=== PATIENT | female | born 1970 | race Caucasian/White ===

== ENCOUNTER 2017-12-26 09:02 | Day surgery (SDC) | payer BC ==
[2017-12-26] MEDS ORDERED: Marcaine 0.5% SDV 10 ML IJ ONE (09:03)
[2017-12-26] MEDS ORDERED: Lactated Ringers 1,000 ML IV ONE (09:03)
[2017-12-26] MEDS ORDERED: Xylocaine 1% Vial 30 ML PF IJ ONE (09:03)
[2017-12-26] MEDS ORDERED: DIPRIVAN 200 MG/20 ML IV ONE (09:03)
--- NOTE | 2017-12-26 12:44 | XRAY ---
42 seconds fluoroscopy time in surgery for left side L2-4 MBB.
--- NOTE | 2017-12-26 12:44 | XRAY ---
Indication: Right L2-L4 MBB. Intraoperative fluoroscopy was provided for 42 seconds. 3 digital spot images submitted for interpretation demonstrates posterior spinal needle tips projecting over the expected course of the right L2, L3, and L4 nerve roots. Correlate with intraoperative findings/report.
--- NOTE | 2017-12-26 15:12 | OP ---
DATE OF PROCEDURE: 12/26/2017 1135 SURGEON: Areli Coker D.O. PREOPERATIVE DIAGNOSIS: 1. Degenerative lumbar spine disease, spondylosis, low back pain. POSTOPERATIVE DIAGNOSIS: 1. Degenerative lumbar spine disease, spondylosis, low back pain. PROCEDURE PERFORMED: Right L4, L3, L2 medial branch block under fluoroscopic guidance. DESCRIPTION OF THE PROCEDURE: The patient was taken to the operating room and placed in the prone position on the table. Skin at the injection site was prepped and draped in sterile fashion. Under fluoroscopy, bony anatomy of the targeted injection site was visualized. Induction agent was given as per anesthesia while vital signs were monitored. Local anesthetic agent of 2 cc, 1% Lidocaine was introduced to anesthetize the skin and the subcutaneous tissue through the injection site. Under fluoroscopic guidance, a #20 gauge standard spinal needle was advanced into the target medial branch through the oblique approach. 1 cc of 2% preservative-free Lidocaine was injected into each of the targeted medial branch nerve. After the needle was being removed, the skin was cleansed with alcohol and then a bandage was applied. No complications or adverse consequences were observed. The patient was returned to the holding area until stabilized before discharge to home. After the patient has been fully recovered from anesthesia, the patient states 100% pain reduction after this procedure. The patient will be followed up within ten days after the injection for re-evaluation.
== END 2017-12-26 12:30 | disposition home or self-care (01) ==
LOC: SDC-PAIN 09:02
PROVIDERS: ATTEND Internal Medicine
DX: M46.98 Unspecified inflammatory spondylopathy, sacral and sacrococcygeal region (principal); M54.5 Low back pain; M51.36 Other intervertebral disc degeneration, lumbar region; Z79.891 Long term (current) use of opiate analgesic
CPT/HCPCS: 64493; 64494; 72020; 77003; 84703; J2001; J2704

== ENCOUNTER 2018-01-30 12:05 | Day surgery (SDC) | payer BC ==
[2018-01-30] MEDS ORDERED: Xylocaine-Mpf 2% 5 Ml Vial IJ ONE (12:06)
[2018-01-30] MEDS ORDERED: DIPRIVAN 200 MG/20 ML IV ONE (12:06)
[2018-01-30] MEDS ORDERED: Lactated Ringers 1,000 ML IV ONE (12:06)
[2018-01-30] MEDS ORDERED: Ketamine HCl 50 MG/ML IV ONE (12:06)
[2018-01-30] MEDS ORDERED: Marcaine 0.5% SDV 10 ML IJ ONE (12:06)
--- NOTE | 2018-01-30 13:34 | XRAY ---
Indication: Right L3-L4 MBB. Intraoperative fluoroscopy was provided for 24 seconds. 3 digital spot images submitted for interpretation demonstrates posterior spinal needle tips projecting over the right L2, L3, and L4 pedicles. Correlate with intraoperative findings/report.
--- NOTE | 2018-01-30 14:39 | XRAY ---
24 seconds fluoroscopy time in surgery for right L3-4 MBB.
--- NOTE | 2018-01-31 10:44 | OP ---
DATE OF PROCEDURE: 01/30/2018 1309 SURGEON: Areli Coker D.O. PREOPERATIVE DIAGNOSIS: Degenerative lumbar spine disease, spondylosis, low back pain. POSTOPERATIVE DIAGNOSIS: Degenerative lumbar spine disease, spondylosis, low back pain. PROCEDURE PERFORMED: Right L4, L3, L2 medial branch block under fluoroscopic guidance. DESCRIPTION OF THE PROCEDURE: The patient was taken to the operating room and placed in the prone position on the table. Skin at the injection site was prepped and draped in sterile fashion. Under fluoroscopy, bony anatomy of the targeted injection site was visualized. Induction agent was given as per anesthesia while vital signs were monitored. Local anesthetic agent of 0.5 cc of 1% lidocaine preservative free was introduced to anesthetize the skin and the subcutaneous tissue through the injection site. Under fluoroscopic guidance, a #20 gauge standard spinal needle was advanced into the target medial branch through the oblique approach. The preservative free 0.5 cc of 1% lidocaine and 0.5 cc of 0.25% Marcaine were injected into each of the targeted medial branch nerve. After the needle was being removed, the skin was cleansed with alcohol and then a bandage was applied. No complications or adverse consequences were observed. The patient was returned to the holding area until stabilized before discharge to home. After the procedure the residual pain is 0 out of 10. The patient was ambulating well. There was no muscle weakness after the procedure. The patient will be followed up within ten days after the injection for re-evaluation.
== END 2018-01-30 13:42 | disposition home or self-care (01) ==
LOC: SDC-PAIN 12:05
PROVIDERS: ATTEND Internal Medicine
DX: M46.96 Unspecified inflammatory spondylopathy, lumbar region (principal); M51.36 Other intervertebral disc degeneration, lumbar region; Z79.891 Long term (current) use of opiate analgesic
CPT/HCPCS: 64493; 64494; 64495; 72020; 76000; J2704

== ENCOUNTER 2018-03-13 08:21 | Day surgery (SDC) | payer BC ==
[2018-03-13] MEDS ORDERED: LIDOCAINE HCL 1% AMPUL 5 ML IJ ONE (08:22)
[2018-03-13] MEDS ORDERED: Marcaine 0.5% SDV 10 ML IJ ONE (08:22)
[2018-03-13] MEDS ORDERED: DIPRIVAN 200 MG/20 ML IV ONE (08:22)
[2018-03-13] MEDS ORDERED: Lactated Ringers 1,000 ML IV ONE (10:28)
--- NOTE | 2018-03-13 11:22 | XRAY ---
Indication: Right L2-L4 RFA. Intraoperative fluoroscopy was provided for 46 seconds. 4 digital spot images submitted for interpretation demonstrates posterior spinal needle tips projecting over the right L2 L3, and L4 pedicles. Correlate with intraoperative findings/report.
--- NOTE | 2018-03-14 10:05 | OP ---
DATE OF PROCEDURE: 03/13/2018 1011 SURGEON: Areli Coker D.O. PREOPERATIVE DIAGNOSIS: Degenerative lumbosacral spine disease, spondylosis, low back pain. POSTOPERATIVE DIAGNOSIS: Degenerative lumbosacral spine disease, spondylosis, low back pain. PROCEDURES PERFORMED: Right L4, L3, L2 medial branch radiofrequency ablation under fluoroscopic guidance. DESCRIPTION OF PROCEDURE: The patient was taken to the operating room and laid in the prone position on the table. The skin over the injection site was prepped and draped in sterile fashion. Under fluoroscopy bony anatomy of the target injection site was visualized. Induction agent was given as per anesthesia while vital signs were monitored. Local anesthetic agent was introduced to anesthetize the skin and the subcutaneous tissue through the injection site. Under fluoroscopic guidance a standard size spinal needle with cannula was advanced into the target medial branch nerve as per standard protocol. Before the radiofrequency ablation motor and sensory nerve testing was conducted as per protocol. Under the safety guidance which ensured no motor nerves being involved, L4, L3, L2 radiofrequency ablation was conducted at 80 degrees Celsius for 90 seconds as per standard protocol. After the spinal needle with the cannula was removed the skin was cleansed with alcohol and then a bandage was applied. No complications or adverse occurrences were observed. The patient was returned to the holding area until stabilized before being discharged to home. The preoperative pain level was 10 out of 10 and the postoperative pain level was 0 out of 10. The patient will be followed up within 10 days after the procedure for re-evaluation.
== END 2018-03-13 11:05 | disposition home or self-care (01) ==
LOC: SDC-PAIN 08:21
PROVIDERS: ATTEND Internal Medicine
DX: M46.96 Unspecified inflammatory spondylopathy, lumbar region (principal); M51.36 Other intervertebral disc degeneration, lumbar region; M54.5 Low back pain; M47.819 Spondylosis without myelopathy or radiculopathy, site unspecified; Z79.891 Long term (current) use of opiate analgesic
CPT/HCPCS: 64635; 64636; 72020; 77003; J2704

== ENCOUNTER 2023-10-14 12:22 | Observation (INO) | payer BC ==
[2023-10-14] MEDS ORDERED: Sodium Chloride 0.9% 1000 ML 1,000 ML ONE (12:58)
[2023-10-14] MEDS ORDERED: Zofran 4 MG/2 ML VIAL ONE (12:58)
[2023-10-14] MEDS ORDERED: Sodium Chloride 0.9% 1000 ML 1,000 ML IV STA (12:59)
[2023-10-14] MEDS ORDERED: Zofran 4 MG/2 ML VIAL IV ONE (12:59)
[2023-10-14 13:06] LABS: Absolute Neutrophil Ct (ANC) 8.45 x10^3/uL (1.4-6.9); BASOPHIL % 0.3 % (0.0-0.4); Basophil (Absolute #) 0.03 x10^3/uL (0-0.4); Eosinophil (Absolute #) 0 x10^3/uL (0-0.5); Hematocrit 39.8 % (35-47); Hemoglobin 13.3 g/dL (12.0-16.0); IMMATURE GRAN # 0.05 x10^3u/L (0.00-0.03); IMMATURE GRAN % 0.5 % (0.00-0.4); Lymphocyte (Absolute #) 1.43 x10^3/uL (1.0-4.6); Mean Corpuscular Hemoglobin 31.1 pg (26-32); Mean Corpuscular Hgb Concent. 33.4 g/dL (32-36); Monocyte (Absolute #) 1.03 x10^3/uL (0.0-1.3); Monocytes % 9.4 % (0.0-12.0); Neutrophil % 76.8 % (36.0-66.0); Platelet Count 327 x10^3/uL (150-450); Red Blood Count 4.28 x10^6/uL (4.1-5.4); Red Cell Distribution Width 13.4 % (11.5-14.0)
[2023-10-14 13:12] LABS: ALBUMIN 3.8 g/dL (3.5-5.0); ANION GAP 13.9 MEQ/L (5-15); BILIRUBIN,TOTAL 0.7 mg/dL (0.2-1.3); Calcium 8.2 mg/dL (8.4-10.2); Creatinine 1 0.73 mg/dL (0.52-1.04); EST GLOMERULAR FILTRATION RATE 99.5 ML/MIN; Potassium 3.4 mmol/L (3.5-5.1); Total Protein 7.3 g/dL (6.3-8.2)
[2023-10-14] MEDS ORDERED: MORPHINE SULFATE 4 MG INJ IV ONE (13:17)
[2023-10-14 13:18] LABS: Appearance Clear (Clear); Bilirubin Small (Negative); Blood Large (Negative); Epithelial Cells Rare /HPF (None Seen); Glucose, Urine Negative (Negative); Hyaline Casts NONE SEEN /LPF (0-2); Ketones 40 (Negative); Leukocyte Esterase Trace (Negative); Nitrite Positive (Negative); Protein,Urine Dip 300 (Negative); RBC 51-100 /HPF (0-5); Specific Gravity 1.015 (1.005-1.030)
[2023-10-14] MEDS ORDERED: MORPHINE SULFATE 4 MG INJ ONE (13:21)
[2023-10-14 13:25] LABS: ADD URINE CULTURE? YES (NO); Bacteria Few /HPF (None Seen)
[2023-10-14 13:53] LABS: INFLUENZA A NEGATIVE (NEGATIVE); INFLUENZA B NEGATIVE (NEGATIVE); RESPIRATORY SYNCTIAL VIRUS NEGATIVE (NEGATIVE); SARS-CoV-2 Xpert Express NEGATIVE (NEGATIVE)
[2023-10-14] MEDS ORDERED: ROCEPHIN 2 Gm-D5w 50ML BAG** 2 G/50 ML IVPB IV STA (14:10)
[2023-10-14] MEDS ORDERED: ROCEPHIN 2 Gm-D5w 50ML BAG** 2 G/50 ML IVPB IV ONE (14:14)
--- NOTE | 2023-10-14 14:17 | ERPHSYRPT ---
- History of Present Illness Time Seen by Provider: 10/14/23 13:15 Source: patient Exam Limitations: no limitations Patient Subjective Stated Complaint: N/V Triage Nursing Assessment: Patient brought back to ED per w/c and transferred self to bed. Patient A+O X 3. Patient's skin pink, warm and dry. Patient states she was dx with UTI at [facility] ER on 10/12/2023 and given Macrobid. Patient states she has had pelvic pressure, N/V since 10/09/2023. Physician History: 53-year-old female with UTI symptoms for last 5 days, evaluated outside hospital ER 2 days ago on Macrobid presented with worsening pelvic pressure/pains with burning urination and subjective feeling of fever and chills. Patient reports also having nausea with multiple episodes of nonprojectile, nonbilious vomiting where she is not able to hold much down. Feels weak fatigued tired and dehydrated. She is also having mild headache today. Timing/Duration: day(s) (5), gradual onset, worse Quality: dullness, fullness, pressure Onset Location: suprapubic Pain Radiation: back Severity of Pain-Max: moderate Severity of Pain-Current: moderate Sexual intercourse history: non-contributory Modifying Factors: Improves With: nothing Associated Symptoms: abdominal pain, fever, chills, nausea, vomiting Allergies/Adverse Reactions: amoxicillin [From Augmentin] Allergy (Verified 10/14/23 12:36) clavulanic acid [From Augmentin] Allergy (Verified 10/14/23 12:36) levofloxacin [From Levaquin] Allergy (Verified 10/14/23 12:36) Home Medications: Hydroxyzine HCl 25 mg [Atarax 25 mg] 1 tab PO HS PRN 10/14/23 [History] Nitrofurantoin Macrocrystal [Nitrofurantoin] 1 cap PO BID 10/14/23 [History] Phenazopyridine HCl [Pyridium] 1 tab PO TID 10/14/23 [History] Quetiapine Fumarate [Seroquel] 1 tab PO HS 10/14/23 [History] Venlafaxine HCl [Venlafaxine HCl ER] 1 tab PO DAILY 10/14/23 [History] Hx Influenza Vaccination/Date Given: Yes Hx Pneumococcal Vaccination/Date Given: No Travel Risk - International Travel Have you traveled outside of the country in past 3 weeks: No - Coronavirus Screening Close contact with a COVID-19 positive Pt in past 14-21 Days: No - Vaccine Status Have you recieved a Covid-19 vaccination: No - Review of Systems Constitutional: No Symptoms Eyes: No Symptoms Ears, Nose, & Throat: No Symptoms Respiratory: No Symptoms Cardiac: No Symptoms Abdominal/Gastrointestinal: Abdominal Pain, Nausea, Vomiting Genitourinary Symptoms: Dysuria, Frequency, No Flank Pain Musculoskeletal: Back Pain Skin: No Symptoms Psychological: No Symptoms Endocrine: No Symptoms - Past Medical History Cardiac History: Myocardial Infarction (ID) Musculoskeletal History: No Pertinent History History: No Pertinent History Psycho-Social History: No Pertinent History Female Reproductive Disorders: No Pertinent History - Past Surgical History Past Surgical History: No Neuro Surgical History: No Pertinent History Cardiac: No Pertinent History Respiratory: No Pertinent History Gastrointestinal: No Pertinent History Genitourinary: No Pertinent History Musculoskeletal: No Pertinent History Female Surgical History: No Pertinent History - Social History Smoking Status: Never smoker Exposure to second hand smoke: Yes Drug Use: narcotics Patient Lives Alone: No - Nursing Vital Signs Nursing Vital Signs: Initial Vital Signs Pulse Rate 94 H 10/14/23 12:32 Respiratory Rate 18 10/14/23 12:32 Blood Pressure 138/92 10/14/23 12:32 O2 Sat by Pulse Oximetry 94 L 10/14/23 12:32 Pain Scale Pain Intensity 7 - Physical Exam General Appearance: no apparent distress, alert Eye Exam: PERRL/EOMI Ears, Nose, Throat Exam: normal ENT inspection, TMs normal, pharynx normal, moist mucous membranes Neck Exam: normal inspection, full range of motion Respiratory Exam: normal breath sounds, lungs clear Cardiovascular Exam: regular rate/rhythm, normal heart sounds Gastrointestinal/Abdomen Exam: soft, normal bowel sounds, tenderness (Suprapubic) Back Exam: normal inspection, normal range of motion, No CVA tenderness Extremity Exam: normal inspection, normal range of motion, pelvis stable Neurologic Exam: alert, oriented x 3, cooperative Skin Exam: normal color SpO2 Interpretation: normal SpO2: 96 O2 Delivery: Room Air Ordered Tests: Active Orders 24 hr Category Date Time Status ABDOMEN AND PELVIS W CONTRAST [CT] Stat Exams 10/14/23 13:17 Completed CBC W DIFF Stat Lab 10/14/23 12:48 Completed CMP Stat Lab 10/14/23 12:48 Completed CULTURE,URINE Stat Lab 10/14/23 12:48 Received LIPASE Stat Lab 10/14/23 12:48 Completed UA W/RFX UR CULTURE Stat Lab 10/14/23 12:48 Completed Transfer Order Routine Transfer 10/14/23 Ordered Medication Summary Discontinued Medications Generic Name Dose Route Start Last Admin Trade Name Triston PRN Reason Stop Dose Admin Sodium Chloride 1,000 mls @ 999 mls/hr 10/14/23 12:59 10/14/23 14:02 Sodium Chloride 0.9% 1000 Ml IV 10/14/23 13:59 Infused .Q1H1M STA Infusion Sodium Chloride Confirm 10/14/23 12:58 Sodium Chloride 0.9% 1000 Ml Administered 10/14/23 12:59 Dose 1,000 mls @ ud .ROUTE .STK-MED ONE Ceftriaxone Sodium/Dextrose 2 g in 50 mls @ 100 mls/hr 10/14/23 14:10 10/14/23 14:51 Rocephin 2 Gm-D5w 50ml Bag IV 10/14/23 14:39 Infused STAT STA Infusion Ceftriaxone Sodium/Dextrose Confirm 10/14/23 14:14 Rocephin 2 Gm-D5w 50ml Bag Administered 10/14/23 14:15 Dose 2 g in 50 mls @ ud IV .STK-MED ONE Morphine Sulfate 4 mg 10/14/23 13:17 10/14/23 13:23 Morphine Sulfate 4 Mg/Ml Injection IV 10/14/23 13:18 4 mg STAT ONE Administration Morphine Sulfate Confirm 10/14/23 13:21 Morphine Sulfate 4 Mg/Ml Injection Administered 10/14/23 13:22 Dose 4 mg .ROUTE .STK-MED ONE Ondansetron HCl 4 mg 10/14/23 12:59 10/14/23 13:00 Ondansetron Hcl 4 Mg/2 Ml Vial IV 10/14/23 13:00 4 mg STAT ONE Administration Ondansetron HCl Confirm 10/14/23 12:58 Ondansetron Hcl 4 Mg/2 Ml Vial Administered 10/14/23 12:59 Dose 4 mg .ROUTE .STK-MED ONE Lab/Rad Data: Laboratory Result Diagrams 10/14/23 12:48 10/14/23 12:48 Laboratory Results 12/0310/14/23 10/14/23 Range/Units 13:10 12:48 12:48 WBC (4.0-10.5) x10^3/uL RBC (4.1-5.4) x10^6/uL Hgb (12.0-16.0) g/dL Hct (35-47) % MCV (78-100) fL MCH (26-32) pg MCHC (32-36) g/dL RDW (11.5-14.0) % Plt Count (150-450) x10^3/uL MPV (7.5-11.0) fL Gran % (36.0-66.0) % Immature Gran % (Auto) (0.00-0.4) % Nucleat RBC Rel Count (0.00-0.1) % Eos # (Auto) (0-0.5) x10^3/uL Immature Gran # (Auto) (0.00-0.03) x10^3u/L Absolute Lymphs (auto) (1.0-4.6) x10^3/uL Absolute Monos (auto) (0.0-1.3) x10^3/uL Absolute Nucleated RBC (0.00-0.01) x10^3u/L Lymphocytes % (24.0-44.0) % Monocytes % (0.0-12.0) % Eosinophils % (0.00-5.0) % Basophils % (0.0-0.4) % Absolute Granulocytes (1.4-6.9) x10^3/uL Basophils # (0-0.4) x10^3/uL Sodium 131 L (137-145) mmol/L Potassium 3.4 L (3.5-5.1) mmol/L Chloride 97 L (98-107) mmol/L Carbon Dioxide 24 (22-30) mmol/L Anion Gap 13.9 (5-15) MEQ/L BUN 10 (7-17) mg/dL Creatinine 0.73 (0.52-1.04) mg/dL Estimated GFR 99.5 ML/MIN Glucose 119 H (74-106) mg/dL Calcium 8.2 L (8.4-10.2) mg/dL Total Bilirubin 0.70 (0.2-1.3) mg/dL AST 25 (14-36) U/L ALT 31 (0-35) U/L Alkaline Phosphatase 118 (38-126) U/L Serum Total Protein 7.3 (6.3-8.2) g/dL Albumin 3.8 (3.5-5.0) g/dL Lipase 32 (23-300) U/L Urine Color (Yellow) Urine Appearance (Clear) Urine pH (4.6-8.0) Ur Specific Prospect (1.005-1.030) Urine Protein (Negative) Urine Glucose (UA) (Negative) mg/dL Urine Ketones (Negative) Urine Blood (Negative) Urine Nitrite (Negative) Urine Bilirubin (Negative) Urine Urobilinogen (0.2) mg/dL Ur Leukocyte Esterase (Negative) U Hyaline Cast (Auto) (0-2) /LPF Urine Microscopic RBC (0-5) /HPF Urine Microscopic WBC (0-5) /HPF Ur Epithelial Cells (None Seen) /HPF Urine Bacteria (None Seen) /HPF Urine Culture Reflexed (NO) Influenza Type A Ag NEGATIVE (NEGATIVE) Influenza Type B Ag NEGATIVE (NEGATIVE) RSV (PCR) NEGATIVE (NEGATIVE) SARS-CoV-2 (PCR) NEGATIVE (NEGATIVE) 10/14/23 10/14/23 Range/Units 12:48 12:48 WBC 11.0 H (4.0-10.5) x10^3/uL RBC 4.28 (4.1-5.4) x10^6/uL Hgb 13.3 (12.0-16.0) g/dL Hct 39.8 (35-47) % MCV 93.0 (78-100) fL MCH 31.1 (26-32) pg MCHC 33.4 (32-36) g/dL RDW 13.4 (11.5-14.0) % Plt Count 327 (150-450) x10^3/uL MPV 10.0 (7.5-11.0) fL Gran % 76.8 H (36.0-66.0) % Immature Gran % (Auto) 0.5 H (0.00-0.4) % Nucleat RBC Rel Count 0.0 (0.00-0.1) % Eos # (Auto) 0 (0-0.5) x10^3/uL Immature Gran # (Auto) 0.05 H (0.00-0.03) x10^3u/L Absolute Lymphs (auto) 1.43 (1.0-4.6) x10^3/uL Absolute Monos (auto) 1.03 (0.0-1.3) x10^3/uL Absolute Nucleated RBC 0.00 (0.00-0.01) x10^3u/L Lymphocytes % 13.0 L (24.0-44.0) % Monocytes % 9.4 (0.0-12.0) % Eosinophils % 0.0 (0.00-5.0) % Basophils % 0.3 (0.0-0.4) % Absolute Granulocytes 8.45 H (1.4-6.9) x10^3/uL Basophils # 0.03 (0-0.4) x10^3/uL Sodium (137-145) mmol/L Potassium (3.5-5.1) mmol/L Chloride (98-107) mmol/L Carbon Dioxide (22-30) mmol/L Anion Gap (5-15) MEQ/L BUN (7-17) mg/dL Creatinine (0.52-1.04) mg/dL Estimated GFR ML/MIN Glucose (74-106) mg/dL Calcium (8.4-10.2) mg/dL Total Bilirubin (0.2-1.3) mg/dL AST (14-36) U/L ALT (0-35) U/L Alkaline Phosphatase (38-126) U/L Serum Total Protein (6.3-8.2) g/dL Albumin (3.5-5.0) g/dL Lipase (23-300) U/L Urine Color Dark Yellow A (Yellow) Urine Appearance Clear (Clear) Urine pH 6.0 (4.6-8.0) Ur Specific Prospect 1.015 (1.005-1.030) Urine Protein 300 A (Negative) Urine Glucose (UA) Negative (Negative) mg/dL Urine Ketones 40 A (Negative) Urine Blood Large A (Negative) Urine Nitrite Positive A (Negative) Urine Bilirubin Small A (Negative) Urine Urobilinogen 1.0 A (0.2) mg/dL Ur Leukocyte Esterase Trace A (Negative) U Hyaline Cast (Auto) NONE SEEN (0-2) /LPF Urine Microscopic RBC 51-100 A (0-5) /HPF Urine Microscopic WBC 3-5 (0-5) /HPF Ur Epithelial Cells Rare (None Seen) /HPF Urine Bacteria Few A (None Seen) /HPF Urine Culture Reflexed YES (NO) Influenza Type A Ag (NEGATIVE) Influenza Type B Ag (NEGATIVE) RSV (PCR) (NEGATIVE) SARS-CoV-2 (PCR) (NEGATIVE) - Progress Progress: improved, re-examined Air Movement: good Progress Note: 10/14/23 14:15 53-year-old female with UTI symptoms for last 5 days, evaluated outside hospital ER 2 days ago on Macrobid presented with worsening pelvic pressure/pains with burning urination and subjective feeling of fever and chills. Patient reports also having nausea with multiple episodes of nonprojectile, nonbilious vomiting where she is not able to hold much down. Feels weak fatigued tired and dehydrated. She is also having mild headache today. Patient has suprapubic tenderness, negative flank tenderness. Afebrile and here. She is given fluids and symptomatic treatment, on reevaluation feeling much better. Workup showed white count of 11, chemistries fairly unremarkable. She does have UTI and given a dose of Rocephin in here. 10/14/23 16:[address] abdomen pelvis with contrast which showed finding consistent with acute left-sided pyelonephritis associated with pelvic ureteral junction stenosis and mild hydronephrosis. No stones. I believe patient would benefit with IV antibiotics as she has outpatient treatment failure. I have discussed the results of workup with patient and family and recommended admission with IV antibiotics and they agreed. I have discussed with Dr. Morales, reviewed history, workup and patient is excepted for admission. Blood Culture(s) Obtained: No Antibiotics given: Yes Counseled pt/family regarding: lab results, diagnosis, need for follow-up, rad results Medical Desision Making - Discussion of managment Care discussed with:: hospitalist () Reviewed:: Test results Agreed on:: Treatment plan Will see patient: in hospital - Diagnostic Testing Diagnostic test were ordered, analyzed, and reviewed by me: Yes Radiological Interpretation: Reviewed by me, Teleradiologist Report - Risk of complications The pt has a high risk of morbidity or mortality based on: Decision regarding hospitilization or escalation of hosp level of care - Departure Departure Disposition: Observation Clinical Impression: Acute pyelonephritis Condition: Stable Critical Care Time: No Referrals: YO SOTO [Primary Care Provider] - Follow up/PCP as directed
--- NOTE | 2023-10-14 15:36 | XRAY ---
CLINICAL HISTORY:lower abd pain COMPARISON:None. TECHNIQUE:CT scan of the abdomen and pelvis with the intravenous administration of 80 cc Isovue 370 contrast material. FINDINGS: The right kidney is of average size, shape and parenchymal thickness with no evidence of stones, back pressure changes or space-occupying lesions. 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 No evidence of ureteric stones. The left kidney is of average size and shape. There are ill-defined areas of reduced parenchyma enhancement are noted more at the upper and lower poles of the kidney associated with perirenal fat stranding. There is dilatation of the renal pelvis and calyces due to possible obstruction at the pelvic-ureteric junction. No stones. The liver is of average size, displaying regular contour and reduced parenchymal density. No focal lesions could be detected. Normal hepatic vascular pattern is noted with no evidence of vascular distortion, thrombotic venous occlusion, or compromise of the hepatic biliary drainage. The GB appears unremarkable. No CT evidence of acute appendicitis. The spleen is of average size with no abnormal focal parenchymal attenuation or wilmer splenic collection. Small splenules are noted. The pancreas, adrenal glands and great vessels are grossly within normal limits. No significant lymph kaitlynn enlargement or ascetic fluid collection. The small and large bowel appear unremarkable. The appendix is not visualized. No signs of acute appendicitis. The uterus, both adnexa and ischiorectal fossae show normal CT appearance. Normal filling of the urinary bladder with no stones, masses, or diverticula. Bone window settings showed degenerative changes of the lumbar spine with L5/S1 degenerative disc disease, yet no evidence of fractures or destructive lesions. Lung window settings showed few right lower lung lobe nodules, ranging in size 4-13 mm, most of them show central calcification with small calcified posterior mediastinal LN. IMPRESSION: Fatty liver. Left renal focal areas of reduced parenchyma enhancement and perirenal fat stranding, likely representing pyelonephritis associated with pelvic-ureteric junction stenosis and mild hydronephrosis. 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 No evidence of ureteric stones. A few right lower lung lobe partially calcified nodules with small calcified posterior mediastinal LN require a dedicated CT study of the chest. The [facility] ER office was called at [phone] at 02:02 AM [employer], 10/14/2023 and the results were verbally communicated with Amy Electronically Signed by: Nessa Moreland MD. (10/14/2023 15:31:30 EST)
--- NOTE | 2023-10-14 17:00 | PCM.HP ---
History of Present Illness - Chief Complaint Chief Complaint: Acute pyelonephritis Date: 10/14/23 (1400) History of Present Illness: is a 53 year old female who is admitted with pelvic pain, fever, nausea and vomiting. She has had nausea for 3 days. She reports fever to 101 with chills. She has had dysuria and frequency but no hematuria. She reports throbbing pain in pelvis that radiates to back on both sides. No provocative or palliative factors. No sore throat or cough. No chest pain or dyspnea. No other current symptoms. PMH is unremarkable. She was told her EKG is abnormal but has never had a known IL. - Review of Systems Constitutional: Fever, Chills Eyes: No Symptoms Ears, Nose, & Throat: No Symptoms Respiratory: No Symptoms Abdominal/Gastrointestinal: Abdominal Pain, Nausea, Vomiting, No Diarrhea Genitourinary Symptoms: Dysuria, Frequency, No Hematuria Musculoskeletal: No Symptoms Skin: No Symptoms Neurological: No Symptoms Psychological: No Symptoms Endocrine: No Symptoms Hematologic/Lymphatic: No Symptoms Immunological/Allergic: No Symptoms All Other Systems: Reviewed and Negative Medications & Allergies Home Medications: Home Medication List Nitrofurantoin Macrocrystal [Nitrofurantoin] 100 mg PO BID 10/14/23 [History Confirmed 10/14/23] Phenazopyridine HCl [Pyridium] 200 mg PO TID 10/14/23 [History Confirmed 10/14/23] Quetiapine Fumarate [Seroquel] 400 mg PO HS 10/14/23 [History Confirmed 10/14/23] Venlafaxine HCl [Venlafaxine HCl ER] 150 tab PO DAILY 10/14/23 [History Confirmed 10/14/23] hydrOXYzine pamoate [Hydroxyzine Pamoate] 50 mg PO BIDPRN PRN 10/14/23 [History Confirmed 10/14/23] Allergies/Adverse Reactions: Allergies Allergy/AdvReac Type Severity Reaction Status Date / Time amoxicillin [From Augmentin] Allergy Verified 10/14/23 12:36 clavulanic acid Allergy Verified 10/14/23 12:36 [From Augmentin] levofloxacin [From Levaquin] Allergy Verified 10/14/23 12:36 - Past Medical History Past Medical History: No ENT History: No Pertinent History Cardiac History: No Pertinent History, Myocardial Infarction (IL) (EKG was abnormal. She has not had documented IL) Respiratory History: No Pertinent History Endocrine Medical History: No Pertinent History Musculoskelatal History: No Pertinent History History: No Pertinent History Pyscho-Social History: No Pertinent History Reproductive Disorders: No Pertinent History - Female History Are you now?: No - Past Surgical History Past Surgical History: No Neuro Surgical History: No Pertinent History Cardiac History: No Pertinent History Respiratory Surgery: No Pertinent History GI Surgical History: No Pertinent History Genitourinary Surgical Hx: No Pertinent History Musculskeletal Surgical Hx: No Pertinent History Female Surgical History: No Pertinent History - Social History Smoking Status: Never smoker Exposure to second hand smoke: Yes Drug Use: narcotics - Physical Exam Vital Signs: Vital Signs - 24 hr Temp Pulse Resp BP BP Pulse Ox 10/14/23 16:25 96 10/14/23 16:00 83 17 118/79 94 L 10/14/23 15:48 89 16 136/84 96 10/14/23 15:30 100 H 22 107/83 84 L 10/14/23 15:00 83 18 108/77 93 L 10/14/23 14:30 86 18 125/82 93 L 10/14/23 14:05 88 19 127/78 94 L 10/14/23 14:02 91 H 21 126/78 96 10/14/23 13:30 116/77 10/14/23 13:00 93 H 14 117/88 91 L 10/14/23 12:39 98.8 F 93 H 20 138/92 95 10/14/23 12:32 94 H 18 138/92 94 L General Appearance: mild distress Neurologic Exam: alert, oriented x 3, cooperative, 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 II-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 as tested Eye Exam: PERRL/EOMI, eyes nml inspection Ears, Nose, Throat Exam: normal ENT inspection Neck Exam: normal inspection, non-tender, supple Respiratory Exam: normal breath sounds, lungs clear Cardiovascular Exam: regular rate/rhythm, normal heart sounds Gastrointestinal/Abdomen Exam: soft, normal bowel sounds, tenderness, No distention, No mass Pelvic Exam: not done Rectal Exam: deferred Back Exam: normal inspection Extremity Exam: normal inspection Skin Exam: normal color Lymphatic Exam: No adenopathy Results - Labs Lab/Micro Results: Lab Results-Last 24 Hours 12/03/23 12/03/23 12/03/23 Range/Units 12:48 12:48 12:48 WBC 11.0 H (4.0-10.5) x10^3/uL RBC 4.28 (4.1-5.4) x10^6/uL Hgb 13.3 (12.0-16.0) g/dL Hct 39.8 (35-47) % MCV 93.0 (78-100) fL MCH 31.1 (26-32) pg MCHC 33.4 (32-36) g/dL RDW 13.4 (11.5-14.0) % Plt Count 327 (150-450) x10^3/uL MPV 10.0 (7.5-11.0) fL Gran % 76.8 H (36.0-66.0) % Immature Gran % (Auto) 0.5 H (0.00-0.4) % Nucleat RBC Rel Count 0.0 (0.00-0.1) % Eos # (Auto) 0 (0-0.5) x10^3/uL Immature Gran # (Auto) 0.05 H (0.00-0.03) x10^3u/L Absolute Lymphs (auto) 1.43 (1.0-4.6) x10^3/uL Absolute Monos (auto) 1.03 (0.0-1.3) x10^3/uL Absolute Nucleated RBC 0.00 (0.00-0.01) x10^3u/L Lymphocytes % 13.0 L (24.0-44.0) % Monocytes % 9.4 (0.0-12.0) % Eosinophils % 0.0 (0.00-5.0) % Basophils % 0.3 (0.0-0.4) % Absolute Granulocytes 8.45 H (1.4-6.9) x10^3/uL Basophils # 0.03 (0-0.4) x10^3/uL Sodium 131 L (137-145) mmol/L Potassium 3.4 L (3.5-5.1) mmol/L Chloride 97 L (98-107) mmol/L Carbon Dioxide 24 (22-30) mmol/L Anion Gap 13.9 (5-15) MEQ/L BUN 10 (7-17) mg/dL Creatinine 0.73 (0.52-1.04) mg/dL Estimated GFR 99.5 ML/MIN Glucose 119 H (74-106) mg/dL Calcium 8.2 L (8.4-10.2) mg/dL Total Bilirubin 0.70 (0.2-1.3) mg/dL AST 25 (14-36) U/L ALT 31 (0-35) U/L Alkaline Phosphatase 118 (38-126) U/L Serum Total Protein 7.3 (6.3-8.2) g/dL Albumin 3.8 (3.5-5.0) g/dL Lipase (23-300) U/L Urine Color Dark Yellow A (Yellow) Urine Appearance Clear (Clear) Urine pH 6.0 (4.6-8.0) Ur Specific Valders 1.015 (1.005-1.030) Urine Protein 300 A (Negative) Urine Glucose (UA) Negative (Negative) mg/dL Urine Ketones 40 A (Negative) Urine Blood Large A (Negative) Urine Nitrite Positive A (Negative) Urine Bilirubin Small A (Negative) Urine Urobilinogen 1.0 A (0.2) mg/dL Ur Leukocyte Esterase Trace A (Negative) U Hyaline Cast (Auto) NONE SEEN (0-2) /LPF Urine Microscopic RBC 51-100 A (0-5) /HPF Urine Microscopic WBC 3-5 (0-5) /HPF Ur Epithelial Cells Rare (None Seen) /HPF Urine Bacteria Few A (None Seen) /HPF Urine Culture Reflexed YES (NO) Influenza Type A Ag (NEGATIVE) Influenza Type B Ag (NEGATIVE) RSV (PCR) (NEGATIVE) SARS-CoV-2 (PCR) (NEGATIVE) 10/14/23 10/14/23 Range/Units 12:48 13:10 WBC (4.0-10.5) x10^3/uL RBC (4.1-5.4) x10^6/uL Hgb (12.0-16.0) g/dL Hct (35-47) % MCV (78-100) fL MCH (26-32) pg MCHC (32-36) g/dL RDW (11.5-14.0) % Plt Count (150-450) x10^3/uL MPV (7.5-11.0) fL Gran % (36.0-66.0) % Immature Gran % (Auto) (0.00-0.4) % Nucleat RBC Rel Count (0.00-0.1) % Eos # (Auto) (0-0.5) x10^3/uL Immature Gran # (Auto) (0.00-0.03) x10^3u/L Absolute Lymphs (auto) (1.0-4.6) x10^3/uL Absolute Monos (auto) (0.0-1.3) x10^3/uL Absolute Nucleated RBC (0.00-0.01) x10^3u/L Lymphocytes % (24.0-44.0) % Monocytes % (0.0-12.0) % Eosinophils % (0.00-5.0) % Basophils % (0.0-0.4) % Absolute Granulocytes (1.4-6.9) x10^3/uL Basophils # (0-0.4) x10^3/uL Sodium (137-145) mmol/L Potassium (3.5-5.1) mmol/L Chloride (98-107) mmol/L Carbon Dioxide (22-30) mmol/L Anion Gap (5-15) MEQ/L BUN (7-17) mg/dL Creatinine (0.52-1.04) mg/dL Estimated GFR ML/MIN Glucose (74-106) mg/dL Calcium (8.4-10.2) mg/dL Total Bilirubin (0.2-1.3) mg/dL AST (14-36) U/L ALT (0-35) U/L Alkaline Phosphatase (38-126) U/L Serum Total Protein (6.3-8.2) g/dL Albumin (3.5-5.0) g/dL Lipase 32 (23-300) U/L Urine Color (Yellow) Urine Appearance (Clear) Urine pH (4.6-8.0) Ur Specific Valders (1.005-1.030) Urine Protein (Negative) Urine Glucose (UA) (Negative) mg/dL Urine Ketones (Negative) Urine Blood (Negative) Urine Nitrite (Negative) Urine Bilirubin (Negative) Urine Urobilinogen (0.2) mg/dL Ur Leukocyte Esterase (Negative) U Hyaline Cast (Auto) (0-2) /LPF Urine Microscopic RBC (0-5) /HPF Urine Microscopic WBC (0-5) /HPF Ur Epithelial Cells (None Seen) /HPF Urine Bacteria (None Seen) /HPF Urine Culture Reflexed (NO) Influenza Type A Ag NEGATIVE (NEGATIVE) Influenza Type B Ag NEGATIVE (NEGATIVE) RSV (PCR) NEGATIVE (NEGATIVE) SARS-CoV-2 (PCR) NEGATIVE (NEGATIVE) - Radiology Impressions Radiology Exams & Impressions: Radiology Procedures Category Date Time Status ABDOMEN AND PELVIS W CONTRAST [CT] Stat Exams 10/14/23 13:17 Completed Assessment/Plan (1) Acute pyelonephritis Current Visit: Yes Status: Acute Assessment & Plan: Patient has acute pyelonephritis on CT UA shows UTI Culture obtained Treat with IV fluids and IV Rocephin. Pain meds as needed. Code(s): N10 - ACUTE PYELONEPHRITIS Telemedicine Encounter - Telemedicine Encounter Telemedicine Encounter: The entirety of this encounter was performed via Telemedicine after consent obtained. Labs and imaging reviewed. Discussed with ER Provider 70 minutes spent on the care of this patient. Nicolas Morales MD [facility] [employer]
[2023-10-14] MEDS ORDERED: FEVERALL 650 MG PR PRN (17:05)
[2023-10-14] MEDS ORDERED: HYDROXYZINE PAMOATE 50 MG PO PRN (17:13)
[2023-10-14] MEDS: Zofran 4 MG/2 ML VIAL IV PRN (17:43)
[2023-10-14] MEDS: MORPHINE SULFATE 4 MG INJ IV PRN ×2 (17:44→21:41)
[2023-10-14] MEDS: NORCO 7.5/325 MG TAB PO PRN (20:34)
[2023-10-14] MEDS: PYRIDIUM 200 MG PO SCH (21:41)
[2023-10-14] MEDS ORDERED: QUETIAPINE FUMARATE 400 MG PO SCH (22:00)
[2023-10-14] MEDS ORDERED: Seroquel 100 MG PO SCH (22:00)
[2023-10-15] MEDS: Zofran 4 MG/2 ML VIAL IV PRN ×2 (00:51→08:28)
[2023-10-15] MEDS: MORPHINE SULFATE 4 MG INJ IV PRN (01:59)
[2023-10-15 04:58] LABS: BASOPHIL % 0.4 % (0.0-0.4); Basophil (Absolute #) 0.03 x10^3/uL (0-0.4); Eosinophil % 0.5 % (0.00-5.0); Eosinophil (Absolute #) 0.04 x10^3/uL (0-0.5); Hematocrit 38.6 % (35-47); IMMATURE GRAN # 0.03 x10^3u/L (0.00-0.03); IMMATURE GRAN % 0.4 % (0.00-0.4); Lymphocyte (Absolute #) 1.84 x10^3/uL (1.0-4.6); Lymphocytes % 24.2 % (24.0-44.0); Mean Cell Volume 97.7 fL (78-100); Mean Corpuscular Hemoglobin 30.4 pg (26-32); Mean Corpuscular Hgb Concent. 31.1 g/dL (32-36); Mean Platelet Volume 9.7 fL (7.5-11.0); Monocyte (Absolute #) 0.95 x10^3/uL (0.0-1.3); Monocytes % 12.5 % (0.0-12.0); NUCLEATED RBC # 0.04 x10^3u/L (0.00-0.01); NUCLEATED RBC % 0.5 % (0.00-0.1); Platelet Count 284 x10^3/uL (150-450); Red Blood Count 3.95 x10^6/uL (4.1-5.4); Red Cell Distribution Width 13.4 % (11.5-14.0); White Blood Count 7.6 x10^3/uL (4.0-10.5)
[2023-10-15] MEDS ORDERED: NORCO 7.5/325 MG TAB ONE (05:21)
[2023-10-15] MEDS: NORCO 7.5/325 MG TAB PO PRN (05:22)
[2023-10-15 05:25] LABS: ALBUMIN 3.2 g/dL (3.5-5.0); ANION GAP 9.6 MEQ/L (5-15); BILIRUBIN,TOTAL 0.5 mg/dL (0.2-1.3); Calcium 7.7 mg/dL (8.4-10.2); Creatinine 1 0.62 mg/dL (0.52-1.04); EST GLOMERULAR FILTRATION RATE 107.8 ML/MIN; Potassium 3.4 mmol/L (3.5-5.1); Total Protein 6.4 g/dL (6.3-8.2)
[2023-10-15 05:28] VITALS: O2SAT 94
[2023-10-15] MEDS ORDERED: ATARAX 25 MG PO PRN (07:03)
[2023-10-15 07:09] VITALS: BP 114/57; PULSE 73; RESP 17; TEMP 97.6
[2023-10-15] MEDS ORDERED: Klor Con PO ONE (07:28)
[2023-10-15] MEDS ORDERED: NORCO 5/325 MG PO PRN (08:13)
[2023-10-15] MEDS: PYRIDIUM 200 MG PO SCH (08:28)
[2023-10-15] MEDS ORDERED: Effexor XR 75 MG PO SCH (10:00)
[2023-10-15] MEDS ORDERED: Protonix 40MG Tablet PO SCH (10:00)
[2023-10-15] MEDS ORDERED: ROCEPHIN 1 Gm-D5w 50 ml Bag** 1 G/50 ML IVPB IV SCH (10:00)
[2023-10-15] MEDS ORDERED: ENOXAPARIN SODIUM SQ SCH (10:00)
[2023-10-15] MEDS ORDERED: Tums EX 750 MG PO SCH (10:00)
[2023-10-15] MEDS ORDERED: NON-FORMULARY ITEM (Venlafaxine Hcl [Venlafaxine Hcl Er] 150 MG Tab.Er.24) PO SCH (10:00)
--- NOTE | 2023-10-15 10:01 | PCM.DS ---
Discharge Summary Date of Admission: 10/14/23 16:26 Date of Discharge: 10/15/23 Admitting Physician: BLACK AVILES MD Primary Care Provider: YO SOTO Allergies Allergies amoxicillin [From Augmentin] Allergy (Verified 10/14/23 12:36) clavulanic acid [From Augmentin] Allergy (Verified 10/14/23 12:36) levofloxacin [From Levaquin] Allergy (Verified 10/14/23 12:36) Hospital Summary - Hospital Course Hospital Course: is a 53 year old female who was admitted with pelvic pain , fever, nausea and vomiting yesterday. She had nausea for 3 days. She reported fever of 101 with chills. She has had dysuria and frequency but no hematuria. She reported throbbing pain in pelvis that radiates to back on both sides. No provocative or palliative factors. No sore throat or cough. No chest pain or dyspnea. No other current symptoms. PMH is unremarkable. She was told her EKG is abnormal but has never had a known DE. Pain has improved overnight. She is asking to go home as she needs to go to work. Urine culture negative. Trops trended down and appears to be demand related. K+ replaced this morning. Will d/c with antibiotics, pain meds, and nausea medication. Blood cultures x2 pending and will need f/u OP with PCP. - Vitals & Intake/Output Vital Signs: Vital Signs Temperature 97.6 F 10/15/23 07:09 Pulse Rate 73 10/15/23 07:09 Respiratory Rate 17 10/15/23 07:09 Blood Pressure 114/57 10/15/23 07:09 O2 Sat by Pulse Oximetry 94 L 10/15/23 07:09 Intake & Output: Intake & Output 10/12/23 10/13/23 10/14/23 10/15/23 11:59 11:59 11:59 11:59 Intake Total 120 Balance 120 Weight 136 kg - Lab Result Diagrams: 10/15/23 04:42 10/15/23 04:42 Lab Results-Last 24 Hrs: Lab Results-Last 24 Hours 10/14/23 10/14/23 10/14/23 Range/Units 12:48 12:48 12:48 WBC 11.0 H (4.0-10.5) x10^3/uL RBC 4.28 (4.1-5.4) x10^6/uL Hgb 13.3 (12.0-16.0) g/dL Hct 39.8 (35-47) % MCV 93.0 (78-100) fL MCH 31.1 (26-32) pg MCHC 33.4 (32-36) g/dL RDW 13.4 (11.5-14.0) % Plt Count 327 (150-450) x10^3/uL MPV 10.0 (7.5-11.0) fL Gran % 76.8 H (36.0-66.0) % Immature Gran % (Auto) 0.5 H (0.00-0.4) % Nucleat RBC Rel Count 0.0 (0.00-0.1) % Eos # (Auto) 0 (0-0.5) x10^3/uL Immature Gran # (Auto) 0.05 H (0.00-0.03) x10^3u/L Absolute Lymphs (auto) 1.43 (1.0-4.6) x10^3/uL Absolute Monos (auto) 1.03 (0.0-1.3) x10^3/uL Absolute Nucleated RBC 0.00 (0.00-0.01) x10^3u/L Lymphocytes % 13.0 L (24.0-44.0) % Monocytes % 9.4 (0.0-12.0) % Eosinophils % 0.0 (0.00-5.0) % Basophils % 0.3 (0.0-0.4) % Absolute Granulocytes 8.45 H (1.4-6.9) x10^3/uL Basophils # 0.03 (0-0.4) x10^3/uL Sodium 131 L (137-145) mmol/L Potassium 3.4 L (3.5-5.1) mmol/L Chloride 97 L (98-107) mmol/L Carbon Dioxide 24 (22-30) mmol/L Anion Gap 13.9 (5-15) MEQ/L BUN 10 (7-17) mg/dL Creatinine 0.73 (0.52-1.04) mg/dL Estimated GFR 99.5 ML/MIN Glucose 119 H (74-106) mg/dL Calcium 8.2 L (8.4-10.2) mg/dL Total Bilirubin 0.70 (0.2-1.3) mg/dL AST 25 (14-36) U/L ALT 31 (0-35) U/L Alkaline Phosphatase 118 (38-126) U/L Serum Total Protein 7.3 (6.3-8.2) g/dL Albumin 3.8 (3.5-5.0) g/dL Lipase (23-300) U/L Urine Color Dark Yellow A (Yellow) Urine Appearance Clear (Clear) Urine pH 6.0 (4.6-8.0) Ur Specific Bouton 1.015 (1.005-1.030) Urine Protein 300 A (Negative) Urine Glucose (UA) Negative (Negative) mg/dL Urine Ketones 40 A (Negative) Urine Blood Large A (Negative) Urine Nitrite Positive A (Negative) Urine Bilirubin Small A (Negative) Urine Urobilinogen 1.0 A (0.2) mg/dL Ur Leukocyte Esterase Trace A (Negative) U Hyaline Cast (Auto) NONE SEEN (0-2) /LPF Urine Microscopic RBC 51-100 A (0-5) /HPF Urine Microscopic WBC 3-5 (0-5) /HPF Ur Epithelial Cells Rare (None Seen) /HPF Urine Bacteria Few A (None Seen) /HPF Urine Culture Reflexed YES (NO) Influenza Type A Ag (NEGATIVE) Influenza Type B Ag (NEGATIVE) RSV (PCR) (NEGATIVE) SARS-CoV-2 (PCR) (NEGATIVE) 10/14/23 10/14/23 10/15/23 Range/Units 12:48 13:10 04:42 WBC 7.6 (4.0-10.5) x10^3/uL RBC 3.95 L (4.1-5.4) x10^6/uL Hgb 12.0 (12.0-16.0) g/dL Hct 38.6 (35-47) % MCV 97.7 (78-100) fL MCH 30.4 (26-32) pg MCHC 31.1 L (32-36) g/dL RDW 13.4 (11.5-14.0) % Plt Count 284 (150-450) x10^3/uL MPV 9.7 (7.5-11.0) fL Gran % 62.0 (36.0-66.0) % Immature Gran % (Auto) 0.4 (0.00-0.4) % Nucleat RBC Rel Count 0.5 H (0.00-0.1) % Eos # (Auto) 0.04 (0-0.5) x10^3/uL Immature Gran # (Auto) 0.03 (0.00-0.03) x10^3u/L Absolute Lymphs (auto) 1.84 (1.0-4.6) x10^3/uL Absolute Monos (auto) 0.95 (0.0-1.3) x10^3/uL Absolute Nucleated RBC 0.04 H (0.00-0.01) x10^3u/L Lymphocytes % 24.2 (24.0-44.0) % Monocytes % 12.5 H (0.0-12.0) % Eosinophils % 0.5 (0.00-5.0) % Basophils % 0.4 (0.0-0.4) % Absolute Granulocytes 4.70 (1.4-6.9) x10^3/uL Basophils # 0.03 (0-0.4) x10^3/uL Sodium (137-145) mmol/L Potassium (3.5-5.1) mmol/L Chloride (98-107) mmol/L Carbon Dioxide (22-30) mmol/L Anion Gap (5-15) MEQ/L BUN (7-17) mg/dL Creatinine (0.52-1.04) mg/dL Estimated GFR ML/MIN Glucose (74-106) mg/dL Calcium (8.4-10.2) mg/dL Total Bilirubin (0.2-1.3) mg/dL AST (14-36) U/L ALT (0-35) U/L Alkaline Phosphatase (38-126) U/L Serum Total Protein (6.3-8.2) g/dL Albumin (3.5-5.0) g/dL Lipase 32 (23-300) U/L Urine Color (Yellow) Urine Appearance (Clear) Urine pH (4.6-8.0) Ur Specific Bouton (1.005-1.030) Urine Protein (Negative) Urine Glucose (UA) (Negative) mg/dL Urine Ketones (Negative) Urine Blood (Negative) Urine Nitrite (Negative) Urine Bilirubin (Negative) Urine Urobilinogen (0.2) mg/dL Ur Leukocyte Esterase (Negative) U Hyaline Cast (Auto) (0-2) /LPF Urine Microscopic RBC (0-5) /HPF Urine Microscopic WBC (0-5) /HPF Ur Epithelial Cells (None Seen) /HPF Urine Bacteria (None Seen) /HPF Urine Culture Reflexed (NO) Influenza Type A Ag NEGATIVE (NEGATIVE) Influenza Type B Ag NEGATIVE (NEGATIVE) RSV (PCR) NEGATIVE (NEGATIVE) SARS-CoV-2 (PCR) NEGATIVE (NEGATIVE) 10/15/23 Range/Units 04:42 WBC (4.0-10.5) x10^3/uL RBC (4.1-5.4) x10^6/uL Hgb (12.0-16.0) g/dL Hct (35-47) % MCV (78-100) fL MCH (26-32) pg MCHC (32-36) g/dL RDW (11.5-14.0) % Plt Count (150-450) x10^3/uL MPV (7.5-11.0) fL Gran % (36.0-66.0) % Immature Gran % (Auto) (0.00-0.4) % Nucleat RBC Rel Count (0.00-0.1) % Eos # (Auto) (0-0.5) x10^3/uL Immature Gran # (Auto) (0.00-0.03) x10^3u/L Absolute Lymphs (auto) (1.0-4.6) x10^3/uL Absolute Monos (auto) (0.0-1.3) x10^3/uL Absolute Nucleated RBC (0.00-0.01) x10^3u/L Lymphocytes % (24.0-44.0) % Monocytes % (0.0-12.0) % Eosinophils % (0.00-5.0) % Basophils % (0.0-0.4) % Absolute Granulocytes (1.4-6.9) x10^3/uL Basophils # (0-0.4) x10^3/uL Sodium 130 L (137-145) mmol/L Potassium 3.4 L (3.5-5.1) mmol/L Chloride 101 (98-107) mmol/L Carbon Dioxide 23 (22-30) mmol/L Anion Gap 9.6 (5-15) MEQ/L BUN 11 (7-17) mg/dL Creatinine 0.62 (0.52-1.04) mg/dL Estimated GFR 107.8 ML/MIN Glucose 87 (74-106) mg/dL Calcium 7.7 L (8.4-10.2) mg/dL Total Bilirubin 0.50 (0.2-1.3) mg/dL AST 20 (14-36) U/L ALT 24 (0-35) U/L Alkaline Phosphatase 90 (38-126) U/L Serum Total Protein 6.4 (6.3-8.2) g/dL Albumin 3.2 L (3.5-5.0) g/dL Lipase (23-300) U/L Urine Color (Yellow) Urine Appearance (Clear) Urine pH (4.6-8.0) Ur Specific Bouton (1.005-1.030) Urine Protein (Negative) Urine Glucose (UA) (Negative) mg/dL Urine Ketones (Negative) Urine Blood (Negative) Urine Nitrite (Negative) Urine Bilirubin (Negative) Urine Urobilinogen (0.2) mg/dL Ur Leukocyte Esterase (Negative) U Hyaline Cast (Auto) (0-2) /LPF Urine Microscopic RBC (0-5) /HPF Urine Microscopic WBC (0-5) /HPF Ur Epithelial Cells (None Seen) /HPF Urine Bacteria (None Seen) /HPF Urine Culture Reflexed (NO) Influenza Type A Ag (NEGATIVE) Influenza Type B Ag (NEGATIVE) RSV (PCR) (NEGATIVE) SARS-CoV-2 (PCR) (NEGATIVE) Micro Results-Entire Visit: Microbiology 10/14/23 12:48 Urine Culture - Preliminary Clean Catch Midstream NO GROWTH TO DATE - Radiology Exams Ordered Rad Exams-Entire Visit: Radiology Procedures Category Date Time Status ABDOMEN AND PELVIS W CONTRAST [CT] Stat Exams 10/14/23 13:17 Completed Discharge Exam General Appearance: no apparent distress, alert, obese Neurologic Exam: alert, oriented x 3, cooperative, normal mood/affect, nml cerebellar function, sensation nml, No motor deficits Eye Exam: PERRL, EOMI, eyes nml inspection Ears, Nose, Throat Exam: normal ENT inspection, pharynx normal, moist mucous membranes Neck Exam: normal inspection, non-tender, supple, full range of motion Respiratory Exam: normal breath sounds, lungs clear, No respiratory distress Cardiovascular Exam: regular rate/rhythm, normal heart sounds Gastrointestinal/Abdomen Exam: soft, No tenderness, No mass Pelvic Exam: deferred Rectal Exam: deferred Back Exam: normal inspection, normal range of motion, No CVA tenderness, No vertebral tenderness Extremity Exam: normal inspection, normal range of motion Skin Exam: normal color, warm, dry Final Diagnosis/Problem List - Final Discharge Diagnosis/Problem (1) Acute pyelonephritis Current Visit: Yes Status: Acute Assessment & Plan: -Patient has acute pyelonephritis on CT -UA shows UTI -Culture obtained and negative -Treated with IV fluids and IV Rocephin. -Pain meds as needed. - zofran for nausea 10/15 - Leukocytosis resolved - Will d/c with zofran, tylenol, and cefuroxime. Code(s): N10 - ACUTE PYELONEPHRITIS (2) Hypokalemia Current Visit: Yes Status: Acute Assessment & Plan: - K+ 3.4 replaced Code(s): E87.6 - HYPOKALEMIA (3) Morbid obesity with BMI of 50.0-59.9, adult Current Visit: Yes Status: Acute Assessment & Plan: - Advised diet and exercise control Code(s): E66.01 - MORBID (SEVERE) OBESITY DUE TO EXCESS CALORIES; Z68.43 - BODY MASS INDEX [BMI] 50.0-59.9, ADULT (4) Elevated troponin level Current Visit: Yes Status: Acute Assessment & Plan: - trended down, likely demand, 0.062, 0.058, 0.054, 0.048 Code(s): R79.89 - OTHER SPECIFIED ABNORMAL FINDINGS OF BLOOD CHEMISTRY (5) Hyponatremia Current Visit: Yes Status: Acute Assessment & Plan: - Mild 130 -F/u with PCP OP Code(s): E87.1 - HYPO-OSMOLALITY AND HYPONATREMIA (6) Hypocalcemia Current Visit: Yes Status: Acute Assessment & Plan: - corrected calcium 7.9 - started tums 750mg BID - F/u with PCP Code(s): E83.51 - HYPOCALCEMIA - Discharge Discharge Date: 10/15/23 Disposition: Home, Self-Care Condition: Stable Prescriptions: New Calcium Carbonate 750 mg [Tums EX 750 MG] 750 mg PO BID 30 Days #60 tablet Continue Phenazopyridine HCl [Pyridium] 200 mg PO TID Venlafaxine HCl [Venlafaxine HCl ER] 150 tab PO DAILY Quetiapine Fumarate [Seroquel] 400 mg PO HS hydrOXYzine pamoate [Hydroxyzine Pamoate] 50 mg PO BIDPRN PRN PRN Reason: Anxiety Discontinued Nitrofurantoin Macrocrystal [Nitrofurantoin] 100 mg PO BID Instructions: Urinary Tract Infection, Adult (DC), Kidney Infection (DC) Additional Instructions: * Wipe from front to back, urinate after intercourse, take showers not tub baths, keep hydrated. Follow up with: YO SOTO [Primary Care Provider] - Call for Appointment Forms: Discharge Instructions
== END 2023-10-15 10:29 | disposition home or self-care (01) ==
LOC: ED 12:22 → MED SURG 16:26
PROVIDERS: ADMIT Internal Medicine; ATTEND Internal Medicine
DX: N10 Acute pyelonephritis (principal); E87.6 Hypokalemia; E66.01 Morbid (severe) obesity due to excess calories; Z68.43 Body mass index [BMI] 50.0-59.9, adult; E87.1 Hypo-osmolality and hyponatremia; E83.51 Hypocalcemia; Z79.899 Other long term (current) drug therapy; Z20.828 Contact with and (suspected) exposure to other viral communicable diseases
CPT/HCPCS: 0241U; 36000; 36415; 74177; 80053; 81001; 83690; 85025; 87040; 87086; 96365; 96374; 96375; 99285; 93268; J0696; J1650; J2270; J2405; Q3014; A9270-GY; G0378

== ENCOUNTER 2023-11-01 07:55 | Emergency (ER) | payer BC ==
--- NOTE | 2023-11-01 08:04 | ERPHSYRPT ---
- History of Present Illness Time Seen by Provider: 11/01/23 08:04 Source: patient Exam Limitations: no limitations Physician History: This is a 53-year-old obese white female patient who presents with recurrent left flank pain and pelvic pain that began/recurred last evening and worsened this morning. Patient was seen in our emergency department on 10/14/2023. She was admitted into the hospital and discharged to home on 10/15/2023. I reviewed those records. This patient was diagnosed with acute left sided pyelonephritis. She was given Rocephin intravenously during the hospitalization and discharged home with twice a day antibiotics which she does not recall the name of. Patient's symptoms improved but then recurred yesterday and pain and symptoms are worse today. The CT scan of the abdomen pelvis dated 10/14/2023 showed acute pyelonephritis on the left associated with pelvic ureteral junction stenosis and mild hydronephrosis. Patient has not seen a urologist since her discharge to home from this hospital on 10/15/2023.. Timing/Duration: yesterday Activites at Onset: none Quality: pressure, sharpness, stabbing Onset Location: left flank Pain Radiation: suprapubic, left flank Severity of Pain-Max: moderate Severity of Pain-Current: moderate Sexual intercourse history: non-contributory Modifying Factors: Improves With: nothing Associated Symptoms: abdominal pain (Prepubic/pelvic), lower back pain Allergies/Adverse Reactions: amoxicillin [From Augmentin] Allergy (Verified 11/01/23 08:19) clavulanic acid [From Augmentin] Allergy (Verified 11/01/23 08:19) levofloxacin [From Levaquin] Allergy (Verified 11/01/23 08:19) Home Medications: Phenazopyridine HCl [Pyridium] 200 mg PO TID 10/14/23 [History] Quetiapine Fumarate [Seroquel] 400 mg PO HS 10/14/23 [History] Venlafaxine HCl [Venlafaxine HCl ER] 150 tab PO DAILY 10/14/23 [History] hydrOXYzine pamoate [Hydroxyzine Pamoate] 50 mg PO BIDPRN PRN 10/14/23 [History] Hx Influenza Vaccination/Date Given: Yes Hx Pneumococcal Vaccination/Date Given: No Travel Risk - International Travel Have you traveled outside of the country in past 3 weeks: No - Coronavirus Screening Are you exhibiting any of the following symptoms?: No Close contact with a COVID-19 positive Pt in past 14-21 Days: No - Vaccine Status Have you recieved a Covid-19 vaccination: No - Review of Systems Constitutional: No Symptoms Eyes: No Symptoms Ears, Nose, & Throat: No Symptoms Respiratory: No Symptoms Cardiac: No Symptoms Abdominal/Gastrointestinal: Abdominal Pain (Suprapubic and pelvic pressure) Genitourinary Symptoms: Flank Pain (Left) Musculoskeletal: No Symptoms Skin: No Symptoms Neurological: No Symptoms Psychological: No Symptoms Endocrine: No Symptoms Hematologic/Lymphatic: No Symptoms Immunological/Allergic: No Symptoms All Other Systems: Reviewed and Negative - Past Medical History Pertinent Past Medical History: No Neurological History: No Pertinent History ENT History: No Pertinent History Cardiac History: No Pertinent History, Myocardial Infarction ([place]) (EKG was abnormal. She has not had documented [place]) Respiratory History: No Pertinent History Endocrine Medical History: No Pertinent History Musculoskeletal History: No Pertinent History GI Medical History: No Pertinent History History: No Pertinent History Psycho-Social History: No Pertinent History Female Reproductive Disorders: No Pertinent History Other Medical History: [place] abnormal EGK-waiting on ECHO - Past Surgical History Past Surgical History: No Neuro Surgical History: No Pertinent History Cardiac: No Pertinent History Respiratory: No Pertinent History Gastrointestinal: No Pertinent History Genitourinary: No Pertinent History Musculoskeletal: No Pertinent History Female Surgical History: No Pertinent History - Social History Smoking Status: Never smoker Exposure to second hand smoke: Yes Drug Use: narcotics Patient Lives Alone: No - Nursing Vital Signs Nursing Vital Signs: Initial Vital Signs Temperature 98.2 F 11/01/23 08:18 Pulse Rate 99 H 11/01/23 08:18 Respiratory Rate 16 11/01/23 08:18 Blood Pressure 132/114 11/01/23 08:18 Pain Scale Pain Intensity 8 - Physical Exam General Appearance: no apparent distress, alert, anxiety, obese Eye Exam: PERRL/EOMI, eyes nml inspection Ears, Nose, Throat Exam: normal ENT inspection, moist mucous membranes Neck Exam: normal inspection, non-tender, supple, full range of motion Respiratory Exam: normal breath sounds, lungs clear, airway intact, No chest tenderness, No respiratory distress Cardiovascular Exam: regular rate/rhythm, normal heart sounds, normal peripheral pulses Gastrointestinal/Abdomen Exam: soft, normal bowel sounds, tenderness (Mild pressure suprapubically), guarding (Mild to palpation in the suprapubic region), No rebound Pelvic Exam: not done Rectal Exam: not done Back Exam: normal inspection, normal range of motion, CVA tenderness (Left), No vertebral tenderness Extremity Exam: normal inspection, normal range of motion, pelvis stable Neurologic Exam: alert, oriented x 3, 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, 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, normal mood/affect, nml cerebellar function, nml station & gait, sensation nml Skin Exam: normal color, warm, dry Lymphatic Exam: No adenopathy SpO2 Interpretation: normal O2 Delivery: Room Air - Course Nursing assessment & vital signs reviewed: Yes Ordered Tests: Active Orders 24 hr Category Date Time Status IV Insertion STAT Care 11/01/23 08:26 Active ABDOMEN AND PELVIS W/0 CONTRAS [CT] Stat Exams 11/01/23 08:26 Completed AMYLASE Stat Lab 11/01/23 08:55 Received BLOOD CULTURE Stat Lab 11/01/23 08:26 Ordered CBC W DIFF Stat Lab 11/01/23 08:55 Completed CMP Stat Lab 11/01/23 08:55 Received CULTURE,URINE Stat Lab 11/01/23 08:16 Received LIPASE Stat Lab 11/01/23 08:55 Received Lactic Acid Stat Lab 11/01/23 08:26 Completed UA W/RFX UR CULTURE Stat Lab 11/01/23 08:16 Completed Medication Summary Generic Name Dose Route Start Last Admin Trade Name Freq PRN Reason Stop Dose Admin Sodium Chloride 1,000 mls @ 999 mls/hr 11/01/23 08:26 11/01/23 08:35 Sodium Chloride 0.9% 1000 Ml IV 11/01/23 09:26 999 mls/hr .Q1H1M STA Administration Ceftriaxone Sodium/Dextrose 1 g in 50 mls @ 100 mls/hr 11/01/23 09:02 Rocephin 1 Gm-D5w 50 Ml Bag IV 11/01/23 09:31 STAT STA Discontinued Medications Generic Name Dose Route Start Last Admin Trade Name Freq PRN Reason Stop Dose Admin Hydromorphone HCl 1 mg 11/01/23 08:26 11/01/23 08:39 Hydromorphone 1 Mg/1ml Inj IV 11/01/23 08:27 1 mg STAT ONE Administration Hydromorphone HCl Confirm 11/01/23 08:33 Hydromorphone 1 Mg/1ml Inj Administered 11/01/23 08:34 Dose 1 mg .ROUTE .STK-MED ONE Sodium Chloride Confirm 11/01/23 08:33 Sodium Chloride 0.9% 1000 Ml Administered 11/01/23 08:34 Dose 1,000 mls @ ud .ROUTE .STK-MED ONE Ketorolac Tromethamine 30 mg 11/01/23 08:26 11/01/23 08:38 Ketorolac Tromethamine 30 Mg/Ml Inj IV 11/01/23 08:27 30 mg STAT ONE Administration Ketorolac Tromethamine Confirm 11/01/23 08:32 Ketorolac Tromethamine 30 Mg/Ml Inj Administered 11/01/23 08:33 Dose 30 mg .ROUTE .STK-MED ONE Ondansetron HCl 4 mg 11/01/23 08:26 11/01/23 08:38 Ondansetron Hcl 4 Mg/2 Ml Vial IV 11/01/23 08:27 4 mg STAT ONE Administration Ondansetron HCl Confirm 11/01/23 08:32 Ondansetron Hcl 4 Mg/2 Ml Vial Administered 11/01/23 08:33 Dose 4 mg .ROUTE .STK-MED ONE Lab/Rad Data: Laboratory Result Diagrams 11/01/23 08:55 Laboratory Results 11/01/23 11/01/23 11/01/23 Range/Units 08:55 08:26 08:16 WBC 9.6 (4.0-10.5) x10^3/uL RBC 4.28 (4.1-5.4) x10^6/uL Hgb 13.0 (12.0-16.0) g/dL Hct 40.4 (35-47) % MCV 94.4 (78-100) fL MCH 30.4 (26-32) pg MCHC 32.2 (32-36) g/dL RDW 13.9 (11.5-14.0) % Plt Count 350 (150-450) x10^3/uL MPV 10.2 (7.5-11.0) fL Gran % 82.2 H (36.0-66.0) % Immature Gran % (Auto) 0.2 (0.00-0.4) % Nucleat RBC Rel Count 0.0 (0.00-0.1) % Eos # (Auto) 0.08 (0-0.5) x10^3/uL Immature Gran # (Auto) 0.02 (0.00-0.03) x10^3u/L Absolute Lymphs (auto) 1.00 (1.0-4.6) x10^3/uL Absolute Monos (auto) 0.58 (0.0-1.3) x10^3/uL Absolute Nucleated RBC 0.00 (0.00-0.01) x10^3u/L Lymphocytes % 10.4 L (24.0-44.0) % Monocytes % 6.1 (0.0-12.0) % Eosinophils % 0.8 (0.00-5.0) % Basophils % 0.3 (0.0-0.4) % Absolute Granulocytes 7.87 H (1.4-6.9) x10^3/uL Basophils # 0.03 (0-0.4) x10^3/uL Lactic Acid 1.4 (0.4-2.0) Urine Color Dark Yellow A (Yellow) Urine Appearance Turbid A (Clear) Urine pH 5.5 (4.6-8.0) Ur Specific [place] 1.010 (1.005-1.030) Urine Protein 100 A (Negative) Urine Glucose (UA) Negative (Negative) mg/dL Urine Ketones Negative (Negative) Urine Blood Moderate A (Negative) Urine Nitrite Positive A (Negative) Urine Bilirubin Small A (Negative) Urine Urobilinogen 1.0 A (0.2) mg/dL Ur Leukocyte Esterase Large A (Negative) U Hyaline Cast (Auto) NONE SEEN (0-2) /LPF Urine Microscopic RBC 0-2 (0-5) /HPF Urine Microscopic WBC >100 A (0-5) /HPF Ur Epithelial Cells None Seen (None Seen) /HPF Urine Bacteria Many A (None Seen) /HPF Urine Culture Reflexed YES (NO) - Progress Progress: improved Air Movement: good Progress Note: 11/01/23 08:37 This patient's medical issue is 1 of moderate complexity. Level complex in the workup performed is based on review the patient's past medical history, review the patient's medication list, review the patient's drug allergy list, history of present illness and physical findings on examination. Workup in this patient includes placement of intravenous line, infusion of normal saline solution, Zof ran, and Dilaudid intravenously. Order a CBC, CMP, urinalysis, amylase, lipase, lactic acid level and CT scan of the abdomen pelvis without contrast. 11/01/23 09:25 I reviewed and interpreted the patient's laboratory data results. The patient has a significant urinary tract infection. We will provide her with Rocephin 1 g intravenously and then discharge her to home. We will remotely send a pr escription to her pharmacy for [place] 5/325 and cef[address] scan of the abdomen pelvis was interpreted by the radiologist and I reviewed the impression. Impression states minimal left perirenal stranding favoring underlying inflammatory/infectious process. Stable moderate left renal hydron ephrosis without radiopaque calculus. Blood Culture(s) Obtained: Yes Counseled pt/family regarding: lab results, diagnosis, need for follow-up, rad results Medical Desision Making - Diagnostic Testing Diagnostic test were ordered, analyzed, and reviewed by me: Yes Radiological Interpretation: Reviewed by me, Teleradiologist Report - Risk of complications The pt has a mod risk of morbidity or mortality based on: Need for prescription drug management - Departure Departure Disposition: Home Clinical Impression: Acute pyelonephritis, Hydronephrosis Condition: Stable Critical Care Time: No Referrals: YO SOTO [Primary Care Provider] - Follow up/PCP as directed Additional Instructions: Drink plenty of clear liquids. Take ibuprofen 600 mg 3 times a day with food for the next 5 days. Follow-up with urology at the scheduled appointment date and time. Take your antibiotics and other medications as prescribed. Prescriptions: Hydrocodone/APAP 5/325 [Mar[place] 5/325 mg] 1 each PO Q8H PRN PRN #6 tablet MDD 3 PRN Reason: Pain Cefdinir 300 mg PO BID #14 cap
[2023-11-01 08:20] VITALS: TEMP 98.2
[2023-11-01] MEDS ORDERED: TORAdol 30 mg Injection IV ONE (08:26)
[2023-11-01] MEDS ORDERED: Hydromorphone 1 mg/ml Injection IV ONE (08:26)
[2023-11-01] MEDS ORDERED: Zofran 4 MG/2 ML VIAL IV ONE (08:26)
[2023-11-01] MEDS ORDERED: Sodium Chloride 0.9% 1000 ML 1,000 ML IV STA (08:26)
[2023-11-01 08:27] LABS: Appearance Turbid (Clear); Bacteria Many /HPF (None Seen); Bilirubin Small (Negative); Blood Moderate (Negative); Epithelial Cells None Seen /HPF (None Seen); Glucose, Urine Negative (Negative); Hyaline Casts NONE SEEN /LPF (0-2); Ketones Negative (Negative); Leukocyte Esterase Large (Negative); Nitrite Positive (Negative); Ph 5.5 (4.6-8.0); Protein,Urine Dip 100 (Negative); RBC 0-2 /HPF (0-5); WBC >100 /HPF (0-5)
[2023-11-01 08:28] LABS: ADD URINE CULTURE? YES (NO)
[2023-11-01] MEDS ORDERED: Zofran 4 MG/2 ML VIAL ONE (08:32)
[2023-11-01] MEDS ORDERED: TORAdol 30 mg Injection ONE (08:32)
[2023-11-01] MEDS ORDERED: Hydromorphone 1 mg/ml Injection ONE (08:33)
[2023-11-01] MEDS ORDERED: Sodium Chloride 0.9% 1000 ML 1,000 ML ONE (08:33)
[2023-11-01] MEDS ORDERED: ROCEPHIN 1 Gm-D5w 50 ml Bag** 1 G/50 ML IVPB IV STA (09:02)
[2023-11-01 09:08] LABS: Absolute Neutrophil Ct (ANC) 7.87 x10^3/uL (1.4-6.9); BASOPHIL % 0.3 % (0.0-0.4); Basophil (Absolute #) 0.03 x10^3/uL (0-0.4); Eosinophil % 0.8 % (0.00-5.0); Eosinophil (Absolute #) 0.08 x10^3/uL (0-0.5); Hematocrit 40.4 % (35-47); IMMATURE GRAN # 0.02 x10^3u/L (0.00-0.03); IMMATURE GRAN % 0.2 % (0.00-0.4); Lymphocytes % 10.4 % (24.0-44.0); Mean Cell Volume 94.4 fL (78-100); Mean Corpuscular Hemoglobin 30.4 pg (26-32); Mean Corpuscular Hgb Concent. 32.2 g/dL (32-36); Mean Platelet Volume 10.2 fL (7.5-11.0); Monocyte (Absolute #) 0.58 x10^3/uL (0.0-1.3); Monocytes % 6.1 % (0.0-12.0); Neutrophil % 82.2 % (36.0-66.0); Platelet Count 350 x10^3/uL (150-450); Red Blood Count 4.28 x10^6/uL (4.1-5.4); Red Cell Distribution Width 13.9 % (11.5-14.0); White Blood Count 9.6 x10^3/uL (4.0-10.5)
--- NOTE | 2023-11-01 09:17 | XRAY ---
Indication: Left flank pain. Multiple contiguous axial images obtained through the abdomen and pelvis without contrast. Comparison: October 14, 2023 Lung bases again demonstrates a few right lung calcified granulomas. No infiltrate or effusion. Heart not enlarged. Stable small distal paraesophageal calcified granulomas. Noncontrasted stomach and bowel loops appear nonobstructed with normal appendix. Again mild diffuse scattered colonic fecal debris throughout. Stable mild fatty liver. No free fluid/air. Left kidney again demonstrates minimal perinephric stranding presumed inflammatory/infectious. Also stable moderate left hydronephrosis with extrarenal pelvis. No calculus in either system or bladder. Remaining liver, gallbladder, pancreas, spleen, adrenal glands, kidneys, ureters, bladder, uterus, and aorta are unremarkable for noncontrast exam. Impression: 1. Stable minimal left perirenal stranding again favoring underlying inflammatory/infectious process. Also stable left renal hydronephrosis without radiopaque calculus. Retrograde pyelogram may yield further information if clinically warranted. 2. Stable incidental mild diffuse fecal stasis, fatty liver, and old granulomatous disease. 3. No new intra-abdominal/pelvic abnormalities on this noncontrast exam.
[2023-11-01 09:24] LABS: ALBUMIN 3.7 g/dL (3.5-5.0); ANION GAP 12.9 MEQ/L (5-15); BILIRUBIN,TOTAL 0.6 mg/dL (0.2-1.3); Calcium 8.6 mg/dL (8.4-10.2); Creatinine 1 0.69 mg/dL (0.52-1.04); Potassium 4.2 mmol/L (3.5-5.1); Total Protein 6.9 g/dL (6.3-8.2)
[2023-11-01 09:29] VITALS: O2SAT 92
[2023-11-01] MEDS ORDERED: ROCEPHIN 1 Gm-D5w 50 ml Bag** 1 G/50 ML IVPB IV ONE (09:31)
[2023-11-01 10:58] VITALS: BP 133/92; PULSE 90; RESP 20
== END 2023-11-01 11:06 | disposition home or self-care (01) ==
LOC: ED 07:55
DX: N10 Acute pyelonephritis (principal); N13.30 Unspecified hydronephrosis; R10.9 Unspecified abdominal pain; R10.2 Pelvic and perineal pain; Z79.891 Long term (current) use of opiate analgesic; Z79.899 Other long term (current) drug therapy; Z28.310 Unvaccinated for COVID-19
CPT/HCPCS: 36000; 36415; 74176; 80053; 81001; 82150; 83605; 83690; 85025; 87040; 87077; 87086; 87186; 96374; 96375; 99284; J0696; J1170; J1885; J2405

== ENCOUNTER 2023-11-02 10:09 | Emergency (ER) | payer BC ==
[2023-11-02] MEDS ORDERED: TORAdol 30 mg Injection IV ONE (10:22)
[2023-11-02] MEDS ORDERED: Sodium Chloride 0.9% 1000 ML 1,000 ML IV STA (10:22)
[2023-11-02] MEDS ORDERED: Zofran 4 MG/2 ML VIAL IV ONE (10:22)
[2023-11-02] MEDS ORDERED: Hydromorphone 1 mg/ml Injection IV ONE (10:22)
[2023-11-02 10:27] VITALS: TEMP 96
[2023-11-02] MEDS ORDERED: TORAdol 30 mg Injection ONE (10:28)
[2023-11-02] MEDS ORDERED: Sodium Chloride 0.9% 1000 ML 1,000 ML ONE (10:28)
[2023-11-02] MEDS ORDERED: Zofran 4 MG/2 ML VIAL ONE (10:28)
[2023-11-02] MEDS ORDERED: Hydromorphone 1 mg/ml Injection ONE (10:28)
--- NOTE | 2023-11-02 10:29 | ERPHSYRPT ---
- History of Present Illness Time Seen by Provider: 11/02/23 10:20 Source: patient, family Exam Limitations: clinical condition Physician History: This is an obese 53-year-old who returns to our emergency department for her third visit in approximately 2 to 3 weeks for the same issue. She has pelvic pain. She has findings on the 2 CAT scans of the abdomen pelvis of left hydronephrosis with left pelvic ureteral junction stenosis. There was no evidence of any radiopaque calculus. Patient had prescriptions of [place] 5/325, cefdinir and Zofran that were sent to her pharmacy on 11/01/2023. She was told to take the [place]'s 3 times a day. She should still have [place] pain medicine available to her. However, she has used all of her [place] pain pills. Patient states that she began vomiting today and is unsure if she got any of the antibiotics. She cannot hold anything down. The urologist, Dr. López's office, was supposed to call the patient to make arranges for an appointment. However, the patient states that she has not had her phone recharged and is not working. Today, I discussed with the patient about providing her with intravenous fluid, pain control, antiemetic and a dose of antibiotics and to check her electrolytes and kidney function. We will also call the urologist office to determine if there is a way the patient can be seen today. Patient and her significant other are aware that we do not have urology on staff. Activites at Onset: none Quality: sharpness, stabbing Onset Location: left flank, pelvic pain Pain Radiation: left flank Severity of Pain-Max: moderate Severity of Pain-Current: moderate Sexual intercourse history: non-contributory Modifying Factors: Improves With: vomiting Associated Symptoms: nausea, vomiting, lower back pain (Left flank) Allergies/Adverse Reactions: amoxicillin [From Augmentin] Allergy (Verified 11/02/23 10:19) clavulanic acid [From Augmentin] Allergy (Verified 11/02/23 10:19) levofloxacin [From Levaquin] Allergy (Verified 11/02/23 10:19) Home Medications: Phenazopyridine HCl [Pyridium] 200 mg PO TID 10/14/23 [History] Quetiapine Fumarate [Seroquel] 400 mg PO HS 10/14/23 [History] Venlafaxine HCl [Venlafaxine HCl ER] 150 tab PO DAILY 10/14/23 [History] hydrOXYzine pamoate [Hydroxyzine Pamoate] 50 mg PO BIDPRN PRN 10/14/23 [History] Hx Influenza Vaccination/Date Given: Yes Hx Pneumococcal Vaccination/Date Given: No Travel Risk - International Travel Have you traveled outside of the country in past 3 weeks: No - Coronavirus Screening Are you exhibiting any of the following symptoms?: No Close contact with a COVID-19 positive Pt in past 14-21 Days: No - Vaccine Status Have you recieved a Covid-19 vaccination: No Cable Supervisor: Unknown - Vaccination Dates Dates if Unknown: uknown - Review of Systems Constitutional: No Symptoms Eyes: No Symptoms Ears, Nose, & Throat: No Symptoms Respiratory: No Symptoms Cardiac: No Symptoms Abdominal/Gastrointestinal: Abdominal Pain, Nausea (Pelvic), Vomiting, Appetite Changes Genitourinary Symptoms: Flank Pain (Left) Musculoskeletal: No Symptoms Skin: No Symptoms Neurological: No Symptoms Psychological: No Symptoms Endocrine: No Symptoms Hematologic/Lymphatic: No Symptoms Immunological/Allergic: No Symptoms All Other Systems: Reviewed and Negative - Past Medical History Pertinent Past Medical History: No Neurological History: No Pertinent History ENT History: No Pertinent History Cardiac History: No Pertinent History, Myocardial Infarction ([place]) (EKG was abnormal. She has not had documented [place]) Respiratory History: No Pertinent History Endocrine Medical History: No Pertinent History Musculoskeletal History: No Pertinent History GI Medical History: No Pertinent History History: No Pertinent History Psycho-Social History: No Pertinent History Female Reproductive Disorders: No Pertinent History Other Medical History: [place] abnormal EGK-waiting on ECHO - Past Surgical History Past Surgical History: No Neuro Surgical History: No Pertinent History Cardiac: No Pertinent History Respiratory: No Pertinent History Gastrointestinal: No Pertinent History Genitourinary: No Pertinent History Musculoskeletal: No Pertinent History Female Surgical History: No Pertinent History - Social History Smoking Status: Never smoker Exposure to second hand smoke: Yes Drug Use: narcotics Patient Lives Alone: No - Nursing Vital Signs Nursing Vital Signs: Initial Vital Signs Temperature 96.0 F 11/02/23 10:20 Pulse Rate 95 H 11/02/23 10:20 Respiratory Rate 18 11/02/23 10:20 Blood Pressure 165/104 11/02/23 10:20 O2 Sat by Pulse Oximetry 96 11/02/23 10:20 Pain Scale Pain Intensity 8 - Physical Exam General Appearance: mild distress, alert, anxiety, obese, other (Tearful) Eye Exam: PERRL/EOMI, eyes nml inspection Ears, Nose, Throat Exam: normal ENT inspection, moist mucous membranes Neck Exam: normal inspection, non-tender, supple, full range of motion Respiratory Exam: normal breath sounds, lungs clear, airway intact, No chest tenderness, No respiratory distress Cardiovascular Exam: regular rate/rhythm, normal heart sounds, normal peripheral pulses Gastrointestinal/Abdomen Exam: soft, normal bowel sounds, No tenderness, No guarding Pelvic Exam: not done Rectal Exam: not done Back Exam: normal inspection, normal range of motion, CVA tenderness, No vertebral tenderness (Left) Extremity Exam: normal inspection, normal range of motion, pelvis stable Neurologic Exam: alert, oriented x 3, 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, 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, nml cerebellar function, nml station & gait, sensation nml Skin Exam: normal color, warm, dry Lymphatic Exam: No adenopathy SpO2 Interpretation: normal O2 Delivery: Room Air - Course Nursing assessment & vital signs reviewed: Yes Ordered Tests: Active Orders 24 hr Category Date Time Status IV Insertion STAT Care 11/02/23 10:22 Active AMYLASE Stat Lab 11/02/23 10:32 Completed CBC W DIFF Stat Lab 11/02/23 10:32 Completed CMP Stat Lab 11/02/23 10:32 Completed LIPASE Stat Lab 11/02/23 10:32 Completed Medication Summary Discontinued Medications Generic Name Dose Route Start Last Admin Trade Name Triston PRN Reason Stop Dose Admin Hydromorphone HCl 1 mg 11/02/23 10:22 11/02/23 10:34 Hydromorphone 1 Mg/1ml Inj IV 11/02/23 10:23 1 mg STAT ONE Administration Hydromorphone HCl Confirm 11/02/23 10:28 Hydromorphone 1 Mg/1ml Inj Administered 11/02/23 10:29 Dose 1 mg .ROUTE .STK-MED ONE Sodium Chloride 1,000 mls @ 999 mls/hr 11/02/23 10:22 11/02/23 10:29 Sodium Chloride 0.9% 1000 Ml IV 11/02/23 11:22 999 mls/hr .Q1H1M STA Administration Sodium Chloride Confirm 11/02/23 10:28 Sodium Chloride 0.9% 1000 Ml Administered 11/02/23 10:29 Dose 1,000 mls @ ud .ROUTE .STK-MED ONE Ceftriaxone Sodium/Dextrose 1 g in 50 mls @ 100 mls/hr 11/02/23 10:31 11/02/23 11:19 Rocephin 1 Gm-D5w 50 Ml Bag IV 11/02/23 11:00 Infused STAT STA Infusion Ceftriaxone Sodium/Dextrose Confirm 11/02/23 10:39 Rocephin 1 Gm-D5w 50 Ml Bag Administered 11/02/23 10:40 Dose 1 g in 50 mls @ ud IV .STK-MED ONE Ketorolac Tromethamine 30 mg 11/02/23 10:22 11/02/23 10:33 Ketorolac Tromethamine 30 Mg/Ml Inj IV 11/02/23 10:23 30 mg STAT ONE Administration Ketorolac Tromethamine Confirm 11/02/23 10:28 Ketorolac Tromethamine 30 Mg/Ml Inj Administered 11/02/23 10:29 Dose 30 mg .ROUTE .STK-MED ONE Ondansetron HCl 4 mg 11/02/23 10:22 11/02/23 10:31 Ondansetron Hcl 4 Mg/2 Ml Vial IV 11/02/23 10:23 4 mg STAT ONE Administration Ondansetron HCl Confirm 11/02/23 10:28 Ondansetron Hcl 4 Mg/2 Ml Vial Administered 11/02/23 10:29 Dose 4 mg .ROUTE .STK-MED ONE Lab/Rad Data: Laboratory Result Diagrams 11/02/23 10:32 11/02/23 10:32 Laboratory Results 11/02/23 11/02/23 Range/Units 10:32 10:32 WBC 9.3 (4.0-10.5) x10^3/uL RBC 4.21 (4.1-5.4) x10^6/uL Hgb 12.8 (12.0-16.0) g/dL Hct 39.1 (35-47) % MCV 92.9 (78-100) fL MCH 30.4 (26-32) pg MCHC 32.7 (32-36) g/dL RDW 13.9 (11.5-14.0) % Plt Count 370 (150-450) x10^3/uL MPV 9.9 (7.5-11.0) fL Gran % 75.5 H (36.0-66.0) % Immature Gran % (Auto) 0.2 (0.00-0.4) % Nucleat RBC Rel Count 0.0 (0.00-0.1) % Eos # (Auto) 0.02 (0-0.5) x10^3/uL Immature Gran # (Auto) 0.02 (0.00-0.03) x10^3u/L Absolute Lymphs (auto) 1.49 (1.0-4.6) x10^3/uL Absolute Monos (auto) 0.71 (0.0-1.3) x10^3/uL Absolute Nucleated RBC 0.00 (0.00-0.01) x10^3u/L Lymphocytes % 16.1 L (24.0-44.0) % Monocytes % 7.7 (0.0-12.0) % Eosinophils % 0.2 (0.00-5.0) % Basophils % 0.3 (0.0-0.4) % Absolute Granulocytes 6.99 H (1.4-6.9) x10^3/uL Basophils # 0.03 (0-0.4) x10^3/uL Sodium 136 L (137-145) mmol/L Potassium 4.2 (3.5-5.1) mmol/L Chloride 104 (98-107) mmol/L Carbon Dioxide 24 (22-30) mmol/L Anion Gap 12.6 (5-15) MEQ/L BUN 9 (7-17) mg/dL Creatinine 0.61 (0.52-1.04) mg/dL Estimated GFR 108.2 ML/MIN Glucose 110 H (74-106) mg/dL Calcium 8.7 (8.4-10.2) mg/dL Total Bilirubin 0.70 (0.2-1.3) mg/dL AST 24 (14-36) U/L ALT 34 (0-35) U/L Alkaline Phosphatase 98 (38-126) U/L Serum Total Protein 6.8 (6.3-8.2) g/dL Albumin 3.6 (3.5-5.0) g/dL Amylase 55 (30-110) U/L Lipase 28 (23-300) U/L - Progress Progress: improved, re-examined Progress Note: 11/02/23 10:29 This patient medical issue is 1 of moderate complexity. The level of complexity in the workup performed is based on review the patient's past medical history, review the patient's medication list, review of patient drug allergy list, history present illness and physical findings on examination. The workup in the patient includes placement of intravenous line, infusion of 1 L normal saline solution, antiemetic of Zofran intravenously, Toradol 30 mg intravenously, Dilaudid 1 mg intravenously, CBC, CMP, amylase, lipase. I will also infuse 1 g of Rocephin intravenously. 11/02/23 11:28 I interpreted the patient's laboratory data results. There is no evidence of any acute or emergent findings on her laboratory data results. We contacted Dr. López's office (urology). They were reviewing the patient's information. The office said they would contact the patient's 's phone numbers. That phone is working and it is a valid number. Patient was instructed to follow-up with their instructions once they are called today. Blood Culture(s) Obtained: No Antibiotics given: Yes Counseled pt/family regarding: lab results, diagnosis, need for follow-up Medical Desision Making - Independent Historian Additional History obtained from: Spouse - Diagnostic Testing Diagnostic test were ordered, analyzed, and reviewed by me: Yes - Risk of complications Low Risk: Low risk of morbidity from additional dx testing or treatment - Departure Departure Disposition: Home Clinical Impression: UTI (urinary tract infection), Hydronephrosis, left, Pyelonephritis of left [place] Condition: Stable Critical Care Time: No Referrals: YO SOTO [Primary Care Provider] - Follow up/PCP as directed Additional Instructions: Use your medication as prescribed previously. Drink plenty of clear liquids. Wait for the urologist to contact you today and follow their instructions. Additionally, if you have worsening pain, make sure you follow-up with the emergency room at either [facility] or [facility] where there is a urologist.
[2023-11-02] MEDS ORDERED: ROCEPHIN 1 Gm-D5w 50 ml Bag** 1 G/50 ML IVPB IV STA (10:31)
[2023-11-02 10:33] LABS: Absolute Neutrophil Ct (ANC) 6.99 x10^3/uL (1.4-6.9); BASOPHIL % 0.3 % (0.0-0.4); Basophil (Absolute #) 0.03 x10^3/uL (0-0.4); Eosinophil % 0.2 % (0.00-5.0); Eosinophil (Absolute #) 0.02 x10^3/uL (0-0.5); Hematocrit 39.1 % (35-47); Hemoglobin 12.8 g/dL (12.0-16.0); IMMATURE GRAN # 0.02 x10^3u/L (0.00-0.03); IMMATURE GRAN % 0.2 % (0.00-0.4); Lymphocyte (Absolute #) 1.49 x10^3/uL (1.0-4.6); Lymphocytes % 16.1 % (24.0-44.0); Mean Cell Volume 92.9 fL (78-100); Mean Corpuscular Hemoglobin 30.4 pg (26-32); Mean Corpuscular Hgb Concent. 32.7 g/dL (32-36); Mean Platelet Volume 9.9 fL (7.5-11.0); Monocyte (Absolute #) 0.71 x10^3/uL (0.0-1.3); Monocytes % 7.7 % (0.0-12.0); Neutrophil % 75.5 % (36.0-66.0); Platelet Count 370 x10^3/uL (150-450); Red Blood Count 4.21 x10^6/uL (4.1-5.4); Red Cell Distribution Width 13.9 % (11.5-14.0); White Blood Count 9.3 x10^3/uL (4.0-10.5)
[2023-11-02] MEDS ORDERED: ROCEPHIN 1 Gm-D5w 50 ml Bag** 1 G/50 ML IVPB IV ONE (10:39)
[2023-11-02 10:48] LABS: ALBUMIN 3.6 g/dL (3.5-5.0); ANION GAP 12.6 MEQ/L (5-15); BILIRUBIN,TOTAL 0.7 mg/dL (0.2-1.3); Calcium 8.7 mg/dL (8.4-10.2); Creatinine 1 0.61 mg/dL (0.52-1.04); EST GLOMERULAR FILTRATION RATE 108.2 ML/MIN; Potassium 4.2 mmol/L (3.5-5.1); Total Protein 6.8 g/dL (6.3-8.2)
[2023-11-02 12:05] VITALS: BP 127/81; PULSE 79; RESP 15; O2SAT 95
== END 2023-11-02 12:12 | disposition home or self-care (01) ==
LOC: ED 10:09
DX: N39.0 Urinary tract infection, site not specified (principal); N13.30 Unspecified hydronephrosis; N12 Tubulo-interstitial nephritis, not specified as acute or chronic; R11.2 Nausea with vomiting, unspecified; R10.2 Pelvic and perineal pain; Z79.899 Other long term (current) drug therapy; Z28.310 Unvaccinated for COVID-19
CPT/HCPCS: 36000; 36415; 80053; 82150; 83690; 85025; 96360; 96365; 96374; 96375; 99284; J0696; J1170; J1885; J2405